=== PATIENT | male | born 1975 | race Caucasian/White ===

== ENCOUNTER → 2016-07-07 | Outpatient (CLI) | payer BC ==
--- NOTE | 2016-07-07 21:21 | RADIOLOGY REPORT PS360 ---
CHEST(2 VIEWS-NOT PORTABLE) ORDERING PHYSICIAN : BAILEE JULIO APRN PATIENT AGE: 41 years GENDER: Male INDICATION: chest symptoms PROMINENT XIPHOID CARTILAGE PROCEDURE: CHEST(2 VIEWS-NOT PORTABLE) COMPARISON: No prior chest film.. Ultrasound from today FINDINGS: Lungs well expanded and clear with no active disease evident. No lung lesions. No pneumothorax. No pleural effusion. Heart upper normal size. Normal pulmonary vascularity. Hilar and mediastinal structures appear satisfactory. . The majority the sternum unremarkable. I would note slight anterior tilting of some of the lower ribs towards his return for xiphoid on the lateral view subtle feature. Possibly related to the palpable fullness here. . IMPRESSION --------- Lungs clear No active disease in the chest... . Heart upper normal in size for age Minor observations in text
--- NOTE | 2016-07-08 08:24 | RADIOLOGY REPORT PS360 ---
US CHEST ORDERING PHYSICIAN : BAILEE JULIO APRN PATIENT AGE: 41 years GENDER: Male INDICATION: PROMINENT XIPHOID CARTILAG TECHNIQUE: Ultrasound of xiphoid. Prominent xiphoid COMPARISON: PA and lateral chest from today FINDINGS No nodule or mass identified at the palpable fullness at the lower sternum. Ultrasound images unremarkable If persistent or increasing concern regarding significant process here then a CT chest may be of benefit to better delineate anatomy as is ultrasound examination is quite limited IMPRESSION: Ultrasound demonstrates no discrete nodule or mass at region of xiphoid tip Would suggest CT if palpable area here should progress or remain of concern
== END ==
LOC: RAD 13:01
DX: M94.8X8 Other specified disorders of cartilage, other site (principal)